=== PATIENT | male | born 1955 | race Caucasian/White ===

== ENCOUNTER 2022-01-27 10:14 | Day surgery (SDC) | payer OTHER ==
[~2022-01-27] VITALS: Ht 172.7 cm; Wt 84.0 kg
[~2022-01-27 10:14] MED LIST: Aspir 8181 MG PO; Bactrim Ds Tab1 EACH PO; GLIP10 PO; GUAI600T33 PO; HUMULIN 70100 UNIT/2; HYDACE5 PO; Humalog100 UNIT/1; IBUP600 PO; INSULANPEN; INSULANPEN SC; LISI20 PO; METF500C PO; METO50ER PO; PANT40 PO; PROP10 PO; RXHYDACE PO; XARELTO20 MG PO; ZESTORETIC 20-121 EA
[2022-01-27] MEDS ORDERED: Amlodipine Bes2.5 MG (11:11)
[2022-01-27] MEDS ORDERED: ATOR10 (11:11)
== END 2022-01-27 14:29 | disposition home or self-care (01) ==
LOC: ORSCSDS 10:14
PROVIDERS: Podiatrist Foot & Ankle Surgery
PROC: 0SSG04Z Reposition Left Ankle Joint with Internal Fixation Device, Open Approach (ICD-10-PCS; principal; 2022-01-27 12:15)
DX: S93.492A Sprain of other ligament of left ankle, initial encounter (principal); S82.402A Unspecified fracture of shaft of left fibula, initial encounter for closed fracture; W11.XXXA Fall on and from ladder, initial encounter; I48.0 Paroxysmal atrial fibrillation; E11.9 Type 2 diabetes mellitus without complications; I10 Essential (primary) hypertension; E78.5 Hyperlipidemia, unspecified; Z79.899 Other long term (current) drug therapy; F17.210 Nicotine dependence, cigarettes, uncomplicated; Z79.4 Long term (current) use of insulin
CPT/HCPCS: 82947; A9270; C1713; C1776; J0171; J1100; J1885; J2250; J2405; J2704; J3010; J3370; J7060; J7120